=== PATIENT | male | born 1995 | race Caucasian/White ===

== ENCOUNTER → 2022-03-07 | Outpatient (REF) | payer OTHER ==
[2022-03-07 13:35] LABS: SEMEN APPEARANCE OPAQUE (OPAQUE); SEMEN VISCOSITY VISCOUS (LIQUID); SEMEN VOLUME 3.5 ml (2.0-5.0); SPERM CONCENTRATION 16.9 M/ml (>=15.0); WBC CONCENTRATION <=1 M/ml (<=1 M/ml)
== END ==
LOC: M LAB REF 12:25
PROVIDERS: ATTEND Physician Assistant
DX: Z31.41 Encounter for fertility testing (principal)

== ENCOUNTER → 2023-10-17 | Outpatient (REF) | payer OTHER ==
[2023-10-22 13:53] LABS: SEMEN APPEARANCE OPAQUE (OPAQUE); SEMEN VISCOSITY LIQUID (LIQUID); SEMEN pH 8.5 (7.0-8.0)
[2023-10-22 13:54] LABS: SPERM CONCENTRATION 25.6 M/ml (>=15.0); WBC CONCENTRATION <=1 M/ml (<=1 M/ml)
== END ==
LOC: M LAB REF 10:07
PROVIDERS: ATTEND Urology
DX: N46.8 Other male infertility (principal)

== ENCOUNTER → 2024-01-07 | Outpatient (REF) | payer OTHER ==
[2024-01-07 14:19] LABS: SEMEN APPEARANCE OPAQUE (OPAQUE); SEMEN VISCOSITY LIQUID (LIQUID)
[2024-01-07 14:20] LABS: SPERM CONCENTRATION 14.9 M/ml (>=15.0); WBC CONCENTRATION <=1 M/ml (<=1 M/ml)
== END ==
LOC: M LAB REF 14:11
PROVIDERS: ATTEND Urology
DX: N46.8 Other male infertility (principal)